=== PATIENT | male | born 1965 | race Caucasian/White ===

== ENCOUNTER 2019-05-01 20:30 | Outpatient (CLI) | payer BC | END 2019-05-01 20:31 | disposition home or self-care (01) | LOC: SLEEPLAB 20:30 | PROVIDERS: ATTEND Family Medicine | DX: G47.33 Obstructive sleep apnea (adult) (pediatric) (principal); R53.83 Other fatigue; R06.89 Other abnormalities of breathing; E66.9 Obesity, unspecified; I10 Essential (primary) hypertension; Z68.41 Body mass index [BMI] 40.0-44.9, adult | CPT/HCPCS: 95811 ==

== ENCOUNTER 2020-07-30 09:01 | Outpatient (CLI) | payer BC ==
--- NOTE | 2020-07-30 09:53 | ULT ---
EXAM: US Gallbladder RUQ CLINICAL HISTORY: Chest pain.. COMPARISON: None. FINDINGS: Pancreas: Obscured by bowel Liver:Increased echogenicity which may be due to hepatic steatosis or hepatocellular disease. Hypoech oic focus in the right hepatic lobe measures 1.6 x 1.6 x 1.7 cm. Correlation made with CT from 10/17/2019 demonstrates a hypodense mass, unchanged in size. Right hepatic lobe: 16 point cm Gallbladder: Nonmobile echogenic focus in the lumen of gallbladder measuring 0.2 cm. Possible gallbla dder polyp. No evidence of sludge. Gallbladder wall is not thickened. No pericholecystic fluid. Greene's sign:Negative Portal Vein: Patent. Appropriate directional flow Bile ducts: 0.6 cm common bile duct diameter Right kidney: No hydronephrosis. Right kidney measures 6.2 x 6.1 x 11.5 cm in length. IMPRESSION: 1. No sonographic evidence of cholecystitis. 2. Gallbladder wall polyp. 3. Right hepatic lobe cyst.
== END 2020-07-30 09:02 | disposition home or self-care (01) ==
LOC: SCSULT 09:01
PROVIDERS: ATTEND Internal Medicine Gastroenterology
DX: R10.32 Left lower quadrant pain (principal); R19.4 Change in bowel habit; R07.89 Other chest pain; K76.89 Other specified diseases of liver; K82.4 Cholesterolosis of gallbladder
CPT/HCPCS: 76705